=== PATIENT | male | born 1970 | race Caucasian/White ===

== ENCOUNTER 2018-03-31 15:40 | Emergency (ER) | payer MEDICARE, MEDICAID ==
[~2018-03-31] VITALS: Ht 175.3 cm; Wt 87.0 kg
[2018-03-31 16:27] LABS: BASOPHILS # (AUTO) 0.1 X10'3 (0-0.2); BASOPHILS % (AUTO) 0.6 % (0-1); EOSINOPHILS # (AUTO) 0.1 X10'3 (0-0.9); HEMATOCRIT 46.3 % (42.0-52.0); HEMOGLOBIN 15.7 g/dl (14.0-17.9); LYMPHOCYTES # (AUTO) 2.4 X10'3 (1.1-4.8); MEAN CORPUSCULAR HEMOGLOBIN 33.5 PG (27.0-31.0); MEAN CORPUSCULAR VOLUME 98.7 FL (78-98); MEAN PLATELET VOLUME 7.8 FL (7.4-10.4); MONOCYTES # (AUTO) 0.6 X10'3 (0-0.9); MONOCYTES % (AUTO) 5.4 % (2-12); NEUTROPHILS # (AUTO) 8.3 X10'3 (1.8-7.7); PLATELET COUNT 260 X10'3 (140-440); RED BLOOD COUNT 4.69 X10'6 (4.70-6.10); RED CELL DISTRIBUTION WIDTH 12.6 % (11.5-14.5); WHITE BLOOD COUNT 11.6 X10'3 (4.5-11.0)
[2018-03-31] MEDS ORDERED: PRAZ1CAP5 PO (16:32)
[2018-03-31] MEDS ORDERED: QUET-1 PO (16:32)
[2018-03-31] MEDS ORDERED: ZIPR80CA2 PO (16:32)
[2018-03-31] MEDS ORDERED: GABA-530 PO (16:32)
[2018-03-31] MEDS ORDERED: METF500T7 PO (16:32)
[2018-03-31] MEDS ORDERED: ESZO3TAB40 PO (16:32)
[2018-03-31] MEDS ORDERED: ATOR10TA87 PO (16:32)
[2018-03-31] MEDS ORDERED: HYDR-3965 PO (16:32)
[2018-03-31] MEDS ORDERED: SERT50TA PO (16:32)
[2018-03-31] MEDS ORDERED: BENA20TA82 PO (16:32)
[2018-03-31] MEDS ORDERED: LAMO50TA PO (16:32)
[2018-03-31 16:34] LABS: CLARITY,URINE CLEAR (Clear); COLOR,URINE STRAW (Yellow); GLUCOSE, URINE NEGATIVE (Neg); KETONES,URINE NEGATIVE (Neg); LEUKOCYTE ESTERASE ,URINE NEGATIVE (Neg); NITRITES, URINE NEGATIVE (Neg); OCCULT BLOOD,URINE SMALL (Neg); PH,URINE 6.5 (4.8-8.0); PROTEIN,URINE NEGATIVE (Neg); UA COLLECTION TYPE VOIDED; UROBILINOGEN,URINE 0.2 E.U/dL (0.2-1.0)
[2018-03-31 16:39] LABS: SQUAMOUS EPITHELIAL CELL,UR NONE SEEN /LPF (FEW)
[2018-03-31 16:40] LABS: BACTERIA,URINE FEW /HPF (Neg); RBC,URINE 0-2 /HPF (0-2); WBC,URINE 0-4 /HPF (0-4)
--- NOTE | 2018-03-31 16:40 | NUR ---
RN spoke to patient. RN asked why patient was here. Patient stated he hasn't slept in over 6 weeks and he needs his medications adjusted. RN asked patient if he was suicidal. Patient stated "not right now." Patient states he is very depressed and feels hopeless because he has been unable to sleep. Patient states he lives with his brother in a house and his family is a emotional support. Patient states he attempted to buy a gun last week to kill himself but during the waiting period he changed his mind and cancelled his order. Continue to monitor.
[2018-03-31 16:44] LABS: ALANINE AMINOTRANSFERASE 24 U/L (12-78); ALBUMIN 4.4 G/DL (3.4-5.0); ALBUMIN/GLOBULIN RATIO 1.4 (1.1-1.5); ALKALINE PHOSPHATASE 68 IU/L (46-116); ANION GAP 9 (8-16); ASPARTATE AMINO TRANSFERASE 11 U/L (10-37); BILIRUBIN,TOTAL 0.4 MG/DL (0.1-1.0); BLOOD UREA NITROGEN 9 MG/DL (7-18); BUN/CREATININE RATIO 10.8 (5.4-32.0); CALCIUM 9.1 MG/DL (8.5-10.1); CHLORIDE 101 MMOL/L (99-107); CREATININE 0.83 MG/DL (0.60-1.10); GLUCOSE 110 MG/DL (70-104); POTASSIUM 3.8 MMOL/L (3.5-5.1); SODIUM 140 MMOL/L (135-145); TOTAL CARBON DIOXIDE 29.7 MMOL/L (24-32); TOTAL PROTEIN 7.6 G/DL (6.4-8.2); eGFR > 90 ML/MIN
[2018-03-31 16:46] LABS: URINE AMPHETAMINE SCREEN NEGATIVE (Neg); URINE BARBITUATE SCREEN NEGATIVE (Neg); URINE BENZODIAZEPINES SCREEN NEGATIVE (Neg); URINE CANNABINOID SCREEN NEGATIVE (Neg); URINE COCAINE SCREEN NEGATIVE (Neg); URINE METHADONE SCREEN NEGATIVE (Neg); URINE OPIATE SCREEN NEGATIVE (Neg); URINE PHENCYCLIDINE SCREEN NEGATIVE (Neg)
[2018-03-31 16:54] LABS: ETHANOL < 0.010 GM/DL (0.0-0.010)
[2018-03-31] MEDS ORDERED: ZIPR40CA2 PO (17:29)
[2018-03-31] MEDS ORDERED: HYDROcodone/acetaminophen 5mg/325mg tablet PO PRN (17:45)
[2018-03-31] MEDS ORDERED: hydrOXYzine 25 MG tablet PO PRN (17:45)
--- NOTE | 2018-03-31 19:04 | NUR ---
Patient being evaluated by [facility].
[2018-03-31] MEDS ORDERED: diphenhydrAMINE 25mg capsule PO ONE (20:45)
[2018-03-31] MEDS ORDERED: gabapentin 100mg capsule PO SCH (21:00)
[2018-03-31] MEDS ORDERED: [UNRECOGNIZED DRUG - OTHER] PO SCH (21:00)
[2018-03-31] MEDS ORDERED: sertraline 50mg tablet PO SCH (21:00)
[2018-03-31] MEDS ORDERED: Eszopiclone 3 MG TAB PO SCH (21:00)
[2018-03-31] MEDS ORDERED: quetiapine 100mg tablet PO SCH (21:00)
[2018-03-31] MEDS ORDERED: LORazepam 1 MG tablet PO ONE (21:00)
[2018-03-31] MEDS ORDERED: prazosin 1mg capsule PO SCH (21:00)
[2018-03-31] MEDS ORDERED: LORazepam 0.5 MG tablet PO ONE (21:30)
--- NOTE | 2018-03-31 21:30 | NUR ---
Patient sitting up in bed. No distress observed. Continue to monitor.
[2018-03-31] MEDS: ziprasidone 20mg capsule PO SCH (21:42)
[2018-03-31] MEDS: lamoTRIgine 25mg tablet PO SCH (21:50)
--- NOTE | 2018-03-31 22:22 | NUR ---
Patient sleeping on left side. No restlessness observed. Continue to monitor.
--- NOTE | 2018-04-01 07:00 | NUR ---
Received awake in the bed resting quietly without complaints.
[2018-04-01] MEDS: lamoTRIgine 25mg tablet PO SCH (07:22)
[2018-04-01] MEDS: ziprasidone 20mg capsule PO SCH (07:24)
[2018-04-01] MEDS ORDERED: metFORMIN 500mg tablet PO SCH (08:00)
[2018-04-01] MEDS ORDERED: lisinopril 20mg tablet PO SCH (08:00)
[2018-04-01] MEDS ORDERED: atorvastatin 10mg tablet PO SCH (08:00)
--- NOTE | 2018-04-01 09:00 | NUR ---
Pt up for breakfast and took medications with complaints. Pt has flat affect and continues to endorse depression with suicidal thoughts, no plan.
[2018-04-01] MEDS ORDERED: polyethylene glycol 3350 17gm powd pack PO PRN (09:10)
[2018-04-01] MEDS ORDERED: sennosides 8.6mg tablet PO PRN (09:10)
--- NOTE | 2018-04-01 11:00 | NUR ---
Pt sitting calmly on bed without complaints.
--- NOTE | 2018-04-01 13:00 | NUR ---
Accepted care of patient from Carmelo Fong RN. Ate 100% of his lunch. Maintains a low profile. Quiet and resting.
--- NOTE | 2018-04-01 17:35 | NUR ---
Patient transferred to [facility] via wheelchair, with all his personal belongings. Patient handed over to Arabella CLANCY.
[2018-04-01 18:14] VITALS: BP 118/79
== END 2018-04-01 18:00 ==
LOC: ER 15:43
DX: R45.851 Suicidal ideations (principal); F32.9 Major depressive disorder, single episode, unspecified; F41.9 Anxiety disorder, unspecified; Z79.899 Other long term (current) drug therapy
CPT/HCPCS: 36415; 80053; 80305; 80320; 81001; 82948; 84443; 85025; 99285; Q0163

== ENCOUNTER 2018-04-01 17:00 | Inpatient (IN) | payer MEDICARE, MEDICAID | END 2018-04-04 19:15 | disposition home or self-care (01) | LOC: ADULT MH 17:00 | DX: R45.851 Suicidal ideations (principal); F32.9 Major depressive disorder, single episode, unspecified ==